=== PATIENT | male | born 1935 | race Caucasian/White ===

== ENCOUNTER 2018-08-10 13:05 | Emergency (ER) | payer MEDICARE ==
--- NOTE | 2018-08-10 15:30 | EDM.PDOC ---
ED HPI GENERAL MEDICAL PROBLEM - General Chief Complaint: Trauma Stated Complaint: FELL OF HORSE,BACK INJURY Time Seen by Provider: 08/10/18 13:20 Source of Information: Reports: Patient History Limitations: Reports: No Limitations - History of Present Illness INITIAL COMMENTS - FREE TEXT/NARRATIVE: 82-year-old male presents for evaluation and treatment of injury to the back. Patient was riding a horse in [place]. He states that he started to slide off the saddle and he then fell onto his right shoulder in the right side of his back. He states he did not hit his head. No syncope, vision changes, epistaxis, headaches, neck pain, nausea, vomiting, chest pain, shortness of breath or abdominal pain. He has been up and ambulating since the fall. No pain in his extremities. He identifies pain to the lower right posterior back just inferior and medial to the scapula and just lateral to the mid thoracic spine. Patient states he is not any blood thinning medication. Onset: Today Location: Reports: Back - Related Data Allergies Allergy/AdvReac Type Severity Reaction Status Date / Time No Known Allergies Allergy Verified 08/10/18 13:19 Review of Systems - Review of Systems Review Of Systems: See Below Eyes: Denies: Vision Change Nose: Denies: Epistaxis Respiratory: Denies: Shortness of Breath Cardiovascular: Denies: Chest Pain GI/Abdominal: Denies: Abdominal Pain, Nausea, Vomiting Musculoskeletal: Reports: Back Pain. Denies: Neck Pain, Shoulder Pain Neurological: Denies: Headache, Syncope, Difficulty Walking ED EXAM, GENERAL - Physical Exam Exam: See Below Exam Limited By: No Limitations General Appearance: Alert, WD/WN, No Apparent Distress Eye Exam: Bilateral Eye: EOMI, Normal Inspection, PERRL Ears: Normal External Exam, Normal Canal, Hearing Grossly Normal, Normal TMs Nose: Normal Inspection Throat/Mouth: Normal Inspection, Normal Lips, Normal Voice, No Airway Compromise Head: Atraumatic, Normocephalic Neck: Normal Inspection, Supple, Non-Tender, Full Range of Motion Respiratory/Chest: No Respiratory Distress, Lungs Clear, Normal Breath Sounds, Chest Non-Tender Cardiovascular: Normal Peripheral Pulses, Regular Rate, Rhythm, No Murmur GI/Abdominal: Normal Bowel Sounds, Soft, Non-Tender Extremities: Normal Inspection, Normal Range of Motion Neurological: Alert, Oriented, Normal Cognition Psychiatric: Normal Affect, Normal Mood Skin Exam: Warm, Dry, Normal Color Course - Vital Signs Last Recorded V/S: Last Vital Signs Temp 98.2 F 08/10/18 13:14 Pulse 56 L 08/10/18 13:14 Resp 18 08/10/18 13:14 BP 144/75 H 08/10/18 13:14 Pulse Ox 95 08/10/18 13:14 - Radiology Interpretation Free Text/Narrative:: Right ribs: 3 views of the right ribs were obtained. Comparison: No previous rib exam. Degenerative change scattered within the spine. Bony structures are osteopenic. No acute fracture or other right-sided rib abnormality is seen. Impression: 1. Incidental findings. No acute rib fracture is appreciated. Due to osteopenia, nondisplaced fracture could easily be missed. - Re-Assessments/Exams Free Text/Narrative Re-Assessment/Exam: 08/10/18 15:28 I reviewed the x-ray results with the patient. We will discharge him home. Recommendations given for symptomatic care. Discharge instructions as documented. Departure - Departure Time of Disposition: 15:29 Disposition: Home, Self-Care 01 Condition: Good Clinical Impression: Fall - Discharge Information *PRESCRIPTION DRUG MONITORING PROGRAM REVIEWED*: No *COPY OF PRESCRIPTION DRUG MONITORING REPORT IN PATIENT ELLEN: No Instructions: Fall Prevention in the Home, Adult Referrals: PCP,Not In Area [Primary Care Provider] - Forms: ED Department Discharge Additional Instructions: [id number] Tylenol or Motrin as needed for pain. Ice the sore area. may apply heat for additional pain relief in about a day or 2. Follow-up with family medicine if not much better in 1 week. Please return to the ER if your symptoms change or worsen.
--- NOTE | 2018-08-10 19:35 | CR ---
Right ribs: Three views of the right ribs were obtained. Comparison: No previous rib exam. Degenerative change scattered within the spine. Bony structures are osteopenic. No acute fracture or other right-sided rib abnormality is seen. Impression: 1. Incidental findings. No acute rib fracture is appreciated. Due to osteopenia, nondisplaced fracture could easily be missed. Diagnostic code #2
== END 2018-08-10 15:42 | disposition home or self-care (01) ==
LOC: JD.ED 13:05
DX: M54.6 Pain in thoracic spine (principal); V80.010A Animal-rider injured by fall from or being thrown from horse in noncollision accident, initial encounter
CPT/HCPCS: 71100-26-RT; 71100-RT; 99282; 99284-25